=== PATIENT | female | born 1950 | race Hispanic/Latino ===

== ENCOUNTER 2019-02-11 13:52 | Emergency (ER) | payer MEDICARE, MEDICAID ==
--- NOTE | 2019-02-11 14:02 | ED.PDOC ---
History of Present Illness - General Chief Complaint: Headache Stated Complaint: head hurts,shaky,dizzy,can't sleep Time Seen by Provider: 02/11/19 14:01 Source: patient Exam Limitations: no limitations - History of Present Illness Initial Comments: Maegan Peterson 68 y/o female came to ER with dull frontal headache radiating to vertex on and off for the last 2 years usually summertime and goes away in winter stated had seen several Mds for this symptoms was told allergies and recently had been shaky with feeling of nausea but no vomiting.Also seen ENT specialist was told that she has allergies.Had also been hurting on her right ear but no ringing,dizziness and slight decrease in hearing.No history of remote or recent head injuries,no weakness,no blurry vision or double vision,no dysarthria. Last night unable to sleep.Had history of CT-2008. Timing/Duration: other - 48 MONTHS Severity: moderate Improving Factors: nothing Associated Symptoms: other - see hpi Allergies/Adverse Reactions: Allergies Ciprofloxacin [From Cipro] Allergy (Verified 02/11/19 14:21) Codeine Allergy (Verified 04/20/14 16:25) Hydrocodone Allergy (Verified 04/20/14 16:25) Penicillin G Allergy (Verified 04/20/14 16:25) Povidone Iodine [From Betadine] Allergy (Verified 02/11/19 14:21) Tramadol Allergy (Verified 04/20/14 16:25) Home Medications: Ambulatory Orders Cetirizine HCl [ZyrTEC] 10 mg PO DAILY 02/11/19 Metoprolol Tartrate 25 mg PO DAILY 02/11/19 Montelukast [Singulair] 10 mg PO BEDTIME #30 tab 02/11/19 Triazolam 0.25 mg PO BEDTIME PRN #15 tab 02/11/19 Review of Systems - Review of Systems EENTM: States: see HPI, ear pain Gastrointestinal/Abdominal: States: see HPI Neurological: States: see HPI, headache All other Systems: Reviewed and Negative, No Change from Baseline Past Medical History (General) - Patient Medical History Hx Seizures: No Hx Stroke: No Hx Asthma: No Hx of COPD: No Hx Cardiac Disorders: Yes Hx Congestive Heart Failure: No Hx Pacemaker: No Hx Hypertension: No Hx Thyroid Disease: No Hx Diabetes: No Hx Gastroesophageal Reflux: No Hx Renal Disease: No Hx Cancer: No Hx of HIV: No Hx Hepatitis C: No Hx MRSA: No Surgical History: no surgical history - Social History Hx Tobacco Use: Yes Years Tobacco Use: 51 Cigarettes Packs Per Day: 1 Hx Alcohol Use: No Hx Substance Use: No Hx Substance Use Treatment: No Hx Depression: No Hx Physical Abuse: No Hx Emotional Abuse: No Hx Suspected Abuse: No - Activities of Daily Living Patient Lives Alone: No Grooming Ability: Independent Eating (Feeding) Ability: Independent Toileting Ability: Independent Family Medical History - Family History Mother Family History: No Known Hx Cardiac Disease: Yes - CT-parents Physical Exam - Physical Exam General Appearance: Alert, Comfortable, No apparent distress Eye Exam: bilateral normal Ears, Nose, Throat: hearing grossly normal, normal ENT inspection, normal pharynx, other - edentulous Neck: supple, normal inspection Respiratory: chest non-tender, lungs clear, normal breath sounds, no respiratory distress Cardiovascular/Chest: normal peripheral pulses, regular rate, rhythm, no murmur Peripheral Pulses: radial,right: 2+, radial,left: 2+ Gastrointestinal/Abdominal: non tender, soft, no organomegaly Back Exam: no CVA tenderness, no vertebral tenderness Extremity: non-tender, no pedal edema, no calf tenderness 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, no motor/sensory deficits, alert, oriented x 3, other - speech fluent Skin Exam: normal color, warm/dry Progress - Progress Progress: 02/11/19 14:30 Vital Signs - 8 hr 02/11/19 14:01 Temperature 98.4 F Pulse Rate [ 75 Left Brachial] Respiratory 20 Rate Blood Pressure 177/85 [Left Arm] O2 Sat by Pulse 97 Oximetry 02/11/19 15:18 Discuss all test results with patient - Results/Orders Results/Orders: Laboratory Results - last 24 hr 02/11/19 02/11/19 02/11/19 14:29 14:29 14:31 WBC 9.2 RBC 4.91 Hgb 15.9 Hct 46.3 MCV 94.3 MCH 32.3 H MCHC 34.3 RDW 14.1 Plt Count 288 MPV 7.5 Absolute Neuts (auto) 6.30 Absolute Lymphs (auto) 1.90 Absolute Monos (auto) 0.40 Absolute Eos (auto) 0.40 Absolute Basos (auto) 0.10 Neutrophils % 68.5 Lymphocytes % 20.9 Monocytes % 4.7 Eosinophils % 4.6 Basophils % 1.3 PT 9.4 INR 0.94 PTT (SP) 25.4 Sodium 142 Potassium 3.9 Chloride 110 Carbon Dioxide 24 Anion Gap 11.9 L BUN 12 Creatinine 0.46 L BUN/Creatinine Ratio 26.1 H Random Glucose 109 H Serum Osmolality 283.5 Lactic Acid 1.0 Calcium 9.1 Magnesium 2.1 Total Bilirubin 0.4 Direct Bilirubin < 0.1 Indirect Bilirubin 0.3 AST 35 ALT 99 H Alkaline Phosphatase 289 H Creatine Kinase 48 CK-MB (CK-2) 1.1 CK-MB (CK-2) % Not Reportable Troponin I < 0.02 Serum Total Protein 7.6 Albumin 3.9 TSH 0.98 Urine Color Yellow Urine Appearance Sl cloudy Urine pH 5.5 Ur Specific [place] 1.020 Urine Protein Negative Urine Glucose (UA) Negative Urine Ketones Negative Urine Blood Small H Urine Nitrite Negative Urine Bilirubin Negative Urine Urobilinogen 0.2 Ur Leukocyte Esterase Negative Urine RBC 0 Urine WBC 1-3 Ur Epithelial Cells 1-3 Amorphous Sediment 1+ Urine Bacteria 2+ H - EKG/XRAY/CT XRAY: chest - no acute abnormalities CT Ordered: Yes - HEAD-no acute intracranial abnormalitty Departure - Departure Clinical Impression: Headache above the eye region, Abnormal liver enzymes Insomnia Qualifiers: Insomnia type: unspecified Qualified Code(s): G47.00 - Insomnia, unspecified Time of Disposition: 15:19 Disposition: Discharge to Home or Self Care Condition: Fair Departure Forms: ED Discharge - Pt. Copy, Patient Portal Self Enrollment Instructions: DI for Headache Referrals: LINDSAY ALEXANDRA [Primary Care Provider] - 1-2 Weeks Prescriptions: Montelukast [Singulair] 10 mg PO BEDTIME #30 tab Triazolam 0.25 mg PO BEDTIME PRN #15 tab PRN Reason: Insomnia Home Medications: Ambulatory Orders Cetirizine HCl [ZyrTEC] 10 mg PO DAILY 02/11/19 Metoprolol Tartrate 25 mg PO DAILY 02/11/19 Montelukast [Singulair] 10 mg PO BEDTIME #30 tab 02/11/19 Triazolam 0.25 mg PO BEDTIME PRN #15 tab 02/11/19 Additional Instructions: Follow up with primary Md for recheck 14 February 2019 and also referral to NEUROLOGIST FOR CHRONIC HEADACHE;return to emergency Room as needed;Continue with all home medications
[2019-02-11] MEDS: PROMETHAZINE HCL INJ 25 MG/ML VIAL IM ONE ×2 (14:25→14:31)
[2019-02-11] MEDS: DEXAMETHASONE INJ 4 MG/ML VIAL IM ONE ×3 (14:25→14:53)
--- NOTE | 2019-02-11 15:04 | RAD ---
EXAM: XR Chest, 1 View CLINICAL HISTORY: The patient is 68 years old and is Female; cough TECHNIQUE: Frontal view of the chest. COMPARISON: No relevant prior studies available. FINDINGS: LUNGS: Unremarkable. No consolidation. PLEURAL SPACE: Unremarkable. No pneumothorax. HEART: No significant enlargement of the cardiac silhouette. MEDIASTINUM: Unremarkable. BONES/JOINTS: No acute osseous findings. IMPRESSION: No acute findings visualized within the chest. Electronically signed by: Arlet Verduzco MD 02/11/2019 3:02 PM CDT
--- NOTE | 2019-02-11 15:05 | CT ---
EXAM DESCRIPTION: Head CLINICAL HISTORY: headache COMPARISON: CT head 09/23/2017. TECHNIQUE: Non contrast cranial CT with multiplanar reconstructions. FINDINGS: No acute intracranial hemorrhage, transcortical infarct, mass or mass effect. The Ventricles and sulci are unremarkable. No hydrocephalus. The ortiz-white matter differentiation is intact. No displaced calvarial fracture. Mild mucoperiosteal thickening within the bilateral maxillary, ethmoid, sphenoid sinuses and mastoid air cells. IMPRESSION: 1. No acute intracranial abnormality. This exam was performed according to our departmental dose-optimization program, which includes automated exposure control, adjustment of the mA and/or kV according to patient size and/or use of iterative reconstruction technique. Electronically signed by: Martin An DO 02/11/2019 3:03 PM CDT
[2019-02-11 15:37] VITALS: BP 159/81; TEMP 97.9; O2SAT 66
== END 2019-02-11 15:38 | disposition home or self-care (01) ==
LOC: ER 13:52
DX: R51 Headache (principal); R79.89 Other specified abnormal findings of blood chemistry; G47.00 Insomnia, unspecified; H92.01 Otalgia, right ear; R11.0 Nausea; I25.2 Old myocardial infarction; Z87.891 Personal history of nicotine dependence; Z79.899 Other long term (current) drug therapy; Z88.1 Allergy status to other antibiotic agents; Z88.5 Allergy status to narcotic agent; Z88.0 Allergy status to penicillin; Z91.041 Radiographic dye allergy status
CPT/HCPCS: 36415; 70450; 71045; 80048; 80076; 81001; 82550; 82553; 83605; 84443; 84484; 85025; 85610; 85730; J1100

== ENCOUNTER → 2019-07-06 | Outpatient (CLI) | payer MEDICARE, MEDICAID ==
--- NOTE | 2019-07-06 18:01 | CT ---
EXAM DESCRIPTION: Abdoment/Pelvis w/o Contrast CLINICAL HISTORY: 68 years Female ABDOMINAL PAIN ACUTE COMPARISON: None TECHNIQUE: Images were obtained in axial, sagittal, and coronal planes. This exam was performed according to our departmental dose-optimization program which includes use of Automated Exposure Control, adjustment of the mA and/or kV according to patient size and/or use of iterative reconstruction technique. FINDINGS: Appendix within normal limits. No bowel obstruction, perforation, or inflammation. No abnormality involving the liver, spleen, pancreas, or right adrenal gland. 1.7 cm low-attenuation lesion left adrenal gland likely adenoma. The finding measures -17 Hounsfield units and is most likely benign. No further follow-up needed. Calcified gallstones within the gallbladder. No obstructing renal calcifications bilaterally. No hydronephrosis bilaterally. Unremarkable bladder. Calcification abdominal aorta with no dilatation seen. No adenopathy or abnormal fluid collections seen. Dependent atelectatic change lower lungs bilaterally with confluent component medial left lower lobe. No acute osseous abnormality. IMPRESSION: Cholelithiasis. Otherwise unremarkable study. Electronically signed by: Bria Lock MD 07/06/2019 5:59 PM ASSOCIATE MEDIA DIRECTOR
== END ==
LOC: CT 14:01
PROVIDERS: ATTEND Nurse Practitioner Family
DX: K80.20 Calculus of gallbladder without cholecystitis without obstruction (principal)

== ENCOUNTER 2019-08-04 14:40 | Emergency (ER) | payer MEDICARE, MEDICAID ==
--- NOTE | 2019-08-04 15:26 | ED.PDOC ---
History of Present Illness - General Chief Complaint: Back Pain or Injury Stated Complaint: back pain,frequent urination Time Seen by Provider: 08/04/19 14:44 Source: patient - History of Present Illness Initial Comments: 68 yo female with PMH of anxiety who presents with cc of upper back pain. Onset 1-2 weeks ago, worsened since last night, located to upper back, constant, sharp, moderate severity, intermittent sharp brief worsening sporadically, radiates around both sides to lateral/anterior chest wall, worse with movement, taking Tylenol 325 mg periodically with moderate relief. Has shingles rash to upper back area, healing now over past 2-3 weeks. Denies any dyspnea, fevers, chills, cough, abd pain, n/v/d. Has chronic headaches, unchanged. Allergies/Adverse Reactions: Allergies Ciprofloxacin [From Cipro] Allergy (Verified 02/11/19 14:21) Codeine Allergy (Verified 04/20/14 16:25) Hydrocodone Allergy (Verified 04/20/14 16:25) Penicillin G Allergy (Verified 04/20/14 16:25) Povidone Iodine [From Betadine] Allergy (Verified 02/11/19 14:21) Tramadol Allergy (Verified 04/20/14 16:25) Home Medications: Ambulatory Orders Metoprolol Tartrate 25 mg PO BID 02/11/19 Paroxetine HCl 10 mg PO DAILY 08/04/19 Review of Systems - Review of Systems Review of Systems: 08/04/19 15:53 as per HPI All other Systems: Reviewed and Negative Past Medical History (General) - Patient Medical History Hx Seizures: No Hx Stroke: No Hx Asthma: No Hx of COPD: No Hx Cardiac Disorders: Yes Hx Congestive Heart Failure: No Hx Pacemaker: No Hx Hypertension: Yes Hx Thyroid Disease: No Hx Diabetes: No Hx Gastroesophageal Reflux: No Hx Renal Disease: No Hx Cancer: No Hx of HIV: No Hx Hepatitis C: No Hx MRSA: No Surgical History: no surgical history - Vaccination History Hx Influenza Vaccination: No Hx Pneumococcal Vaccination: No - Social History Hx Tobacco Use: Yes Hx Alcohol Use: No Hx Substance Use: No Hx Substance Use Treatment: No Hx Depression: No Hx Physical Abuse: No Hx Emotional Abuse: No Hx Suspected Abuse: No Family Medical History - Family History Mother Family History: No Known Hx Cardiac Disease: Yes - [place]-parents Physical Exam - Physical Exam General Appearance: Alert, Comfortable, No apparent distress Eye Exam: bilateral normal Ears, Nose, Throat: hearing grossly normal, normal ENT inspection Neck: non-tender, full range of motion, supple, normal inspection Respiratory: chest non-tender, lungs clear, normal breath sounds, no respiratory distress Cardiovascular/Chest: normal peripheral pulses, regular rate, rhythm, no edema, no murmur Peripheral Pulses: radial,right: 2+, radial,left: 2+ Gastrointestinal/Abdominal: non tender, soft, no organomegaly Back Exam: other - Healing herpetic/shingles rash to right upper back, otherwise normal on inspection. 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 Consider also compression frx vs PNA vs rib frx vs ACS vs other -check CXR, T-spine XR, labs -Toradol & Tylenol for pain 08/04/19 17:37 -Labs unremarkable. -CXR & T-spine XR shows no acute processes per my read. -Pt reports pain markedly improved with ED Trx, remains stable. -Discussed diagnosis of postherpetic neuralgia with patient and continued home care with Tylenol, ibuprofen, and gabapentin PRN (already has Rx from PCP but not taking). -dc home in good condition, return warnings discussed Adrian Vaca MD Billing #[id number] 08/04/19 16:00 EKG STAT Laboratory Results - last 24 hr 08/04/19 08/04/19 08/04/19 15:43 15:43 15:43 WBC 8.6 RBC 4.92 Hgb 15.7 Hct 46.8 MCV 95.1 MCH 32.0 H MCHC 33.6 RDW 13.7 Plt Count 280 MPV 7.9 Absolute Neuts (auto) 4.90 Absolute Lymphs (auto) 2.10 Absolute Monos (auto) 0.50 Absolute Eos (auto) 0.90 H Absolute Basos (auto) 0.20 H Neutrophils % 56.4 Lymphocytes % 24.5 Monocytes % 5.8 Eosinophils % 10.7 H Basophils % 2.6 H Sodium 138 Potassium 3.6 Chloride 103 Carbon Dioxide 25 Anion Gap 13.6 BUN 12 Creatinine 0.50 L BUN/Creatinine Ratio 24.0 H Random Glucose 90 Serum Osmolality 275.0 Calcium 9.3 Total Bilirubin 0.4 AST 26 ALT 24 Alkaline Phosphatase 157 H Troponin I Serum Total Protein 7.1 Albumin 3.8 Globulin 3.3 Albumin/Globulin Ratio 1.2 Urine Color Yellow Urine Appearance Clear Urine pH 6.0 Ur Specific [place] 1.015 Urine Protein Negative Urine Glucose (UA) Negative Urine Ketones Negative Urine Blood Small H Urine Nitrite Negative Urine Bilirubin Negative Urine Urobilinogen 0.2 Ur Leukocyte Esterase Negative Urine RBC 0 Urine WBC 0 Ur Epithelial Cells 3-5 Urine Bacteria Rare 08/04/19 15:56 WBC RBC Hgb Hct MCV MCH MCHC RDW Plt Count MPV Absolute Neuts (auto) Absolute Lymphs (auto) Absolute Monos (auto) Absolute Eos (auto) Absolute Basos (auto) Neutrophils % Lymphocytes % Monocytes % Eosinophils % Basophils % Sodium Potassium Chloride Carbon Dioxide Anion Gap BUN Creatinine BUN/Creatinine Ratio Random Glucose Serum Osmolality Calcium Total Bilirubin AST ALT Alkaline Phosphatase Troponin I < 0.02 Serum Total Protein Albumin Globulin Albumin/Globulin Ratio Urine Color Urine Appearance Urine pH Ur Specific [place] Urine Protein Urine Glucose (UA) Urine Ketones Urine Blood Urine Nitrite Urine Bilirubin Urine Urobilinogen Ur Leukocyte Esterase Urine RBC Urine WBC Ur Epithelial Cells Urine Bacteria - EKG/XRAY/CT EKG: Sinus - NSR, HR 65, no ST elevations or q waves, axis & intervals normal, appears unchanged from 04/20/14 EKG Departure - Departure Clinical Impression: Postherpetic neuralgia Time of Disposition: 17:40 Disposition: Discharge to Home or Self Care Condition: Fair Departure Forms: ED Discharge - Pt. Copy, Patient Portal Self Enrollment Instructions: Lexis MINA) Diet: resume usual diet Home Medications: Ambulatory Orders Metoprolol Tartrate 25 mg PO BID 02/11/19 Paroxetine HCl 10 mg PO DAILY 08/04/19 Additional Instructions: Continue taking medications for pain at home as directed - Tylenol 650-1000 mg every 6-8 hours, ibuprofen 600 mg every 6 hours, and gabapentin as prescribed. Return if concerning symptoms develop. Follow up closely with your primary care doctor to discuss your chronic issues and for repeat assessment of your blood pressure.
[2019-08-04] MEDS: ACETAMINOPHEN 325 MG TAB PO ONE (16:01)
[2019-08-04] MEDS: KETOROLAC TROMETHAMINE INJ 30 MG/ML VIAL IM ONE (16:02)
--- NOTE | 2019-08-04 16:40 | RAD ---
EXAM: XR Chest, 1 View CLINICAL HISTORY: acute upper back pain TECHNIQUE: Frontal view of the chest. COMPARISON: 02/11/2019. FINDINGS: Lungs: Unremarkable. No consolidation. Pleural space: Unremarkable. No pneumothorax. Heart: Unremarkable. No cardiomegaly. Mediastinum: Unremarkable. Bones/joints: Unremarkable. Upper abdomen: No free air under the diaphragm. IMPRESSION: No acute findings in the chest. Electronically signed by: Robyn Gonzalez MD 08/04/2019 4:38 PM COOK HELPER
--- NOTE | 2019-08-04 16:43 | RAD ---
EXAM DESCRIPTION: Thoracic Spine,AP Lateral CLINICAL HISTORY: acute upper back pain COMPARISON: 01/13/2012 TECHNIQUE: AP/lateral/swimmer's lateral of the thoracic spine FINDINGS: The thoracic spine alignment is intact without significant listhesis. The vertebral body heights are relatively maintained. No displaced fracture or significantly appearing subluxation is seen. Mild multilevel degenerative changes with intervertebral disc height loss, endplate sclerosis and marginal osteophyte are most pronounced within the upper thoracic spine. IMPRESSION: 1. No radiographic evidence of acute displaced thoracic spine fracture or subluxation. 2. Diffuse osteopenia. Electronically signed by: Martin An DO 08/04/2019 4:41 PM [facility]
[2019-08-04 17:59] VITALS: BP 186/85; TEMP 97.5; O2SAT 96
== END 2019-08-04 17:55 | disposition home or self-care (01) ==
LOC: ER 14:40
DX: B02.29 Other postherpetic nervous system involvement (principal); M54.6 Pain in thoracic spine; F41.9 Anxiety disorder, unspecified; I51.9 Heart disease, unspecified; I10 Essential (primary) hypertension; Z79.899 Other long term (current) drug therapy; Z88.1 Allergy status to other antibiotic agents; Z88.5 Allergy status to narcotic agent; Z88.0 Allergy status to penicillin; Z91.041 Radiographic dye allergy status; Z87.891 Personal history of nicotine dependence
CPT/HCPCS: 36415; 71045; 72070; 80053; 81001; 84484; 85025; 93005; J1885